=== PATIENT | female | born 1975 | race Caucasian/White ===

== ENCOUNTER → 2023-08-09 | Outpatient (CLI) | payer BC ==
[~2023-08-09] MED LIST: ABILIFY 10MG TA10 MG PO; ASPIRIN E.C. 8181 MG PO; ATIVAN 0.50.5 MG/TAB PO; DESYREL 100MG100 MG PO; DOXYCYCLINE 10100 MG PO; FLEXERIL 1010 MG/TAB PO; LAMICTAL XR250 MG PO; MELATONIN5 M1 SL; NORCO 325 MG-51 TAB PO; VALTREX 50500 MG/TAB PO; VYVANSE50 MG PO
== END ==
LOC: MC.RAD 13:13
DX: C50.912 Malignant neoplasm of unspecified site of left female breast (principal)
CPT/HCPCS: C1769

== ENCOUNTER 2023-08-11 10:33 | Day surgery (SDC) | payer BC ==
[~2023-08-11] VITALS: Ht 165.1 cm; Wt 109.1 kg
[2023-08-11] MEDS ORDERED: LR 1,000 ML IV SCH (12:00)
[2023-08-11] MEDS ORDERED: Lidocaine PF 2% (20 MG/ML) 5 ML VIAL ONE (12:30)
[2023-08-11] MEDS ORDERED: Midazolam 2 MG/2 ML VIAL ONE (12:30)
[2023-08-11] MEDS ORDERED: fentaNYL 50 MCG/ML 2 ML VIAL ONE ×2 (12:30→15:29)
[2023-08-11] MEDS ORDERED: NS 10 ML IV ONE (12:58)
[2023-08-11] MEDS ORDERED: dexAMETHasone 10 MG/ML VIAL ONE (12:59)
[2023-08-11 13:49] VITALS: BP 122/50; PULSE 90; TEMP 98
[2023-08-11 13:50] LABS: BASO % 0.3 % (0.0-2.0); EOS # 0.1 K/mm3 (0.0-0.7); EOS % 0.7 % (0.0-4.0); GRAN # 7.6 K/mm3 (1.4-6.5); GRAN % 62.1 % (42.2-75.2); HEMATOCRIT 43.9 % (37.0-47.0); HEMOGLOBIN 14.4 g/dl (12.5-16.0); LYMPH # 3.8 K/mm3 (1.2-3.4); LYMPH % 31.2 % (20.0-51.0); MEAN CELL VOLUME 89 fl (80.0-100.0); MEAN CORPUSCULAR HEMOGLOBIN 29 pg (27-31); MEAN CORPUSCULAR HGB CONC 33 g/dl (33.0-37.0); MEAN PLATELET VOLUME 10.4 fl (7.4-10.4); MONO # 0.7 K/mm3 (0.1-0.6); MONO % 5.4 % (1.7-9.3); PLATELET COUNT 322 K/mm3 (130-400); RED BLOOD COUNT 4.96 M/mm3 (4.10-5.30); REDCELL DISTRIBUTION WIDTH-CV 14.6 % (11.5-14.5)
[2023-08-11] MEDS ORDERED: ATIVAN 0.50.5 MG/TAB PO (14:03)
[2023-08-11] MEDS ORDERED: MELATONIN5 M1 SL (14:04)
[2023-08-11] MEDS ORDERED: FLEXERIL 1010 MG/TAB PO (14:04)
[2023-08-11] MEDS ORDERED: DESYREL 100MG100 MG PO (14:05)
[2023-08-11] MEDS ORDERED: ASPIRIN E.C. 8181 MG PO (14:05)
[2023-08-11] MEDS ORDERED: ABILIFY 10MG TA10 MG PO (14:05)
[2023-08-11] MEDS ORDERED: LAMICTAL XR250 MG PO (14:06)
[2023-08-11] MEDS ORDERED: VYVANSE50 MG PO (14:06)
[2023-08-11 14:07] LABS: ALBUMIN 3.6 g/dL (3.5-5.0); BILIRUBIN,TOTAL 0.4 mg/dL (0.2-1.2); CALCIUM 9.4 mg/dL (8.4-10.2); CREATININE, serum 0.76 mg/dL (0.57-1.11); POTASSIUM 4.1 mEq/L (3.5-4.5)
[2023-08-11] MEDS ORDERED: VALTREX 50500 MG/TAB PO (14:07)
[2023-08-11] MEDS ORDERED: DOXYCYCLINE 10100 MG PO (14:07)
[2023-08-11] MEDS ORDERED: Ondansetron 4 MG/2 ML VIAL ONE (14:41)
[2023-08-11] MEDS ORDERED: Ketorolac 30 MG/ML VIAL ONE (14:55)
[2023-08-11] MEDS ORDERED: Ondansetron 4 MG/2 ML VIAL IV PRN ×2 (15:00→16:00)
[2023-08-11] MEDS ORDERED: Meperidine 50 MG/ML 1 ML VIAL IV PRN (15:00)
[2023-08-11] MEDS ORDERED: Morphine 2 MG/1 ML VIAL [PACU/SDC ONLY] IV PRN (15:00)
[2023-08-11] MEDS ORDERED: fentaNYL 50 MCG/ML 1 ML SYRINGE/VIAL [PACU/SDC ONLY] IV PRN (15:00)
[2023-08-11] MEDS ORDERED: droPERidol 2.5 MG/ML 2 ML VIAL IV PRN (15:00)
[2023-08-11] MEDS ORDERED: HYDROmorphone 1 MG/1 ML SYRINGE [PACU/SDC ONLY] IV PRN (15:00)
[2023-08-11] MEDS ORDERED: Lidocaine PF 2% (20 MG/ML) 5 ML VIAL SQ ONE (15:15)
[2023-08-11] MEDS ORDERED: LR 1,000 ML IV ONE (15:30)
[2023-08-11] MEDS ORDERED: NORCO 325 MG-51 TAB PO (15:44)
[2023-08-11] MEDS ORDERED: Ibuprofen 600 MG TAB PO PRN (16:00)
[2023-08-11 16:40] VITALS: BP 118/45; PULSE 88; TEMP 97.4
[2023-08-11 16:55] VITALS: BP 119/61; PULSE 79
[2023-08-11 17:10] VITALS: BP 117/56; PULSE 79
--- NOTE | 2023-08-11 17:42 | NUR ---
[id number]: PT TO RECOVERY BAY FROM PACU S/P LEFT BREAST LUMPECTOMY WITH SLNB X3 A&O, PLACED ON MONITOR, VSS ON RA DRSG (4X4, MEDIPORE TAPE) X 2 - CDI DENIES COMPLAINT RECEIVED REPORT AND ASSUMED CARE OF PT FROM [facility] SPOUSE BEDSIDE PROVIDED FOOD/FLUIDS, TOLERATING WELL PT HAS REMAINED A&O, NAD, VSS ON RA, TOLERATING PO, IS WITHOUT SIGNIFICANT COMPLAINT, WITH SAFE GAIT BY THE END OF STAY IV D/C'D. D/C INSTRUCTIONS, FOLLOW UP REVIEWED AND HANDED TO PT. ALL QUESTIONS AND CONCERNS ADDRESSED TO PT SATISFACTION. TAKEN TO EXIT VIA W/C WITH ALL BELONGINGS AND PAPERWORK IN HAND, ASSISTED INTO PASSENGER SEAT OF POV. FAMILY TO DRIVE HOME.
== END 2023-08-11 17:30 | disposition home or self-care (01) ==
LOC: SDCO 10:33
PROVIDERS: Surgery
DX: C50.112 Malignant neoplasm of central portion of left female breast (principal); Z17.0 Estrogen receptor positive status [ER+]; F17.210 Nicotine dependence, cigarettes, uncomplicated
CPT/HCPCS: A4648; A9520-JZ; J0690; J1100; J1885; J2250; J2405; J2704; J2795; J3010; J7120